=== PATIENT | male | born 1935 | race Caucasian/White ===

== ENCOUNTER → 2018-08-22 | Outpatient (CLI) | payer OTHER ==
[~2018-08-22] VITALS: Ht 170.2 cm; Wt 108.9 kg
[~2018-08-22] MED LIST: ALDACTONE50 MG OR; ALDACTONE50 MG PO; ASPIR 8181 MG PO; ASPIRIN EC325 M1 PO; ASPIRIN325 OR; AVALIDE 300-121 EACH PO; BYSTOLIC10 MG PO; CENTRUM SILVER1 EAC3 PO; CENTRUM SILVER1 EAC4 PO; CENTRUM TABLET1 TAB OR; CETAPHIL MOIST473 ML TP; CO Q-10100 MG PO; COUMADIN 3 MG TA3 M1 PO; COUMADIN 5 MG TA5 M1; COZAAR100 MG OR; COZAAR100 MG PO; CRESTOR10 MG PO; CRESTOR20 MG PO; FISH OIL 1,2001 EAC4 PO; FISHOIL; FUROSEMIDE 40 M40 M1 OR; HYDROCODON-ACE1 EAC5 PO; IBUPROFEN 200200 M1; LASIX 40 MG TAB40 M2 PO; PERCOCET 10-321 EACH; PERCOCET 7.5-31 EACH; TRILIPIX135 MG OR; VITAMIN B COMP1 EACH PO; VITAMIN D31000 UNIT PO; VITAMIN E400 UNIT PO; XARELTO10 MG; XARELTO20 MG PO; ZPAK PO
[2018-08-22 12:29] VITALS: BP 157/66
== END | disposition home or self-care (01) ==
LOC: CATH 10:44
DX: I87.2 Venous insufficiency (chronic) (peripheral) (principal); I87.1 Compression of vein; I10 Essential (primary) hypertension; E78.5 Hyperlipidemia, unspecified; K21.9 Gastro-esophageal reflux disease without esophagitis; Z87.891 Personal history of nicotine dependence; Z95.1 Presence of aortocoronary bypass graft; Z96.653 Presence of artificial knee joint, bilateral; Z79.01 Long term (current) use of anticoagulants; Z98.890 Other specified postprocedural states; Z79.899 Other long term (current) drug therapy; Z88.8 Allergy status to other drugs, medicaments and biological substances

== ENCOUNTER → 2019-08-11 | Outpatient (CLI) | payer OTHER | LOC: SJCVC 10:10 | PROVIDERS: ATTEND Internal Medicine Cardiovascular Disease | DX: I44.0 Atrioventricular block, first degree (principal); I25.810 Atherosclerosis of coronary artery bypass graft(s) without angina pectoris; E78.5 Hyperlipidemia, unspecified; I10 Essential (primary) hypertension; I73.9 Peripheral vascular disease, unspecified; I82.409 Acute embolism and thrombosis of unspecified deep veins of unspecified lower extremity; I87.2 Venous insufficiency (chronic) (peripheral); D68.59 Other primary thrombophilia; I65.23 Occlusion and stenosis of bilateral carotid arteries; I48.0 Paroxysmal atrial fibrillation; R13.19 Other dysphagia; Z85.528 Personal history of other malignant neoplasm of kidney ==

== ENCOUNTER → 2019-09-11 | Outpatient (CLI) | payer OTHER ==
[~2019-09-11] MED LIST changes: +BYSTOLIC 5 MG5 MG PO; +IRBESARTAN-HCT1 EAC1 PO; +MULTIVITAMINS1 EAC7 PO; +PERCOCET 10-321 EAC1 PO
== END ==
LOC: RAD 09:42 → EDSTATUS 10:04 → RAD 10:16
PROVIDERS: ATTEND Otolaryngology Plastic Surgery within the Head & Neck
DX: Z01.812 Encounter for preprocedural laboratory examination (principal); Z11.59 Encounter for screening for other viral diseases

== ENCOUNTER → 2019-09-16 | Outpatient (CLI) | payer OTHER ==
[~2019-09-16] VITALS: Ht 175.3 cm; Wt 108.9 kg
--- NOTE | 2019-09-18 08:05 | P ---
[facility] [place] [address] PROCEDURE REPORT Name: PHYLLIS LEWIS [id number] Admission: 09/16/19 Attend Phys: Sandip Stephen Discharge: Date of : 33 Report #: [id number] THIS REPORT FOR: cc: Jose Jenkins MD,Jose Pal,Sandip Rosenberg MD ~ CC: Sandip Orlando MD DATE OF SERVICE: 09/16/2019 PROCEDURE PERFORMED: Upper endoscopy with esophageal dilation. HISTORY OF PRESENT ILLNESS: The patient is an 83-year-old male with dysphagia, has been ongoing for several years. He apparently has had several upper endoscopies in the past with dilation without much benefit, last one being approximately a year ago. I do not have a copy of these results, also reportedly has had possible video swallow study unsure if he has had a manometry in the past. He denies any odynophagia. No nausea or vomiting. He has tried Prilosec in the past without any improvement. 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 He has been holding this for the last several days. He reports dysphagia, primarily in the upper esophagus both to solids and liquids. DESCRIPTION OF PROCEDURE: The risks and benefits of the procedure were explained to the patient, those risks including but not limited to bleeding, perforation and the risk of sedation. He understood these risks and gave informed consent. Sedation was given using propofol per anesthesia. Next, using a standard Olympus upper endoscope, the scope was placed in the patient's mouth and advanced under direct vision through the esophagus, stomach and into the second portion of the duodenum. The larynx was normal in appearance. The esophagus was normal throughout. The GE junction was normal. There was no evidence of stricture, no evidence of esophagitis. Overall, the gastric mucosa was normal. The pylorus was normal and patent. The duodenal bulb, first and second portion were all normal. The scope was then brought back up into the patient's stomach and a Savary guidewire was inserted through the scope, leaving the guidewire in place as the scope was then withdrawn. Next, a 54-[place] Savary dilator dilation was then performed of the esophagus without difficulty. The wire and dilator removed. The scope was reintroduced into the patient's stomach. There was no evidence of mucosal tear after dilation. The scope was then withdrawn and the procedure terminated. The patient tolerated the procedure well. IMPRESSION: Normal upper endoscopy. [address] [address] PROCEDURE REPORT Name: PHYLLIS LEWIS Room #: REG [facility]ILIA Smith#: [id number] Admission: 09/16/19 Attend Phys: Sandip Stephen Discharge: Date of : 33 Report #: [id number] RECOMMENDATIONS: Observe the patient post-dilation. If there is no benefit, consider esophageal manometry, will need to review the previous studies that have been completed and make further recommendations at that point. Thank you for allowing me to participate in his care. <ELECTRONICALLY SIGNED> By: Sandip Pal MD 09/18/19 [id number] Sandip Pal MD /nt
== END | disposition home or self-care (01) ==
LOC: GI
PROVIDERS: ATTEND Specialist
DX: R13.10 Dysphagia, unspecified (principal); Z87.01 Personal history of pneumonia (recurrent); I48.0 Paroxysmal atrial fibrillation; I25.10 Atherosclerotic heart disease of native coronary artery without angina pectoris; I12.9 Hypertensive chronic kidney disease with stage 1 through stage 4 chronic kidney disease, or unspecified chronic kidney disease; N18.3 Chronic kidney disease, stage 3 (moderate); E78.00 Pure hypercholesterolemia, unspecified; Z79.899 Other long term (current) drug therapy; Z98.890 Other specified postprocedural states
CPT/HCPCS: 62110; 62900

== ENCOUNTER → 2020-03-11 | Outpatient (CLI) | payer OTHER | LOC: SJCVCIMAG 09:03 | PROVIDERS: ATTEND Internal Medicine Cardiovascular Disease | DX: I70.203 Unspecified atherosclerosis of native arteries of extremities, bilateral legs (principal); R94.31 Abnormal electrocardiogram [ECG] [EKG]; I25.810 Atherosclerosis of coronary artery bypass graft(s) without angina pectoris; D68.59 Other primary thrombophilia; E78.00 Pure hypercholesterolemia, unspecified; I65.23 Occlusion and stenosis of bilateral carotid arteries; I48.91 Unspecified atrial fibrillation; I10 Essential (primary) hypertension; I87.2 Venous insufficiency (chronic) (peripheral); I82.409 Acute embolism and thrombosis of unspecified deep veins of unspecified lower extremity; I26.99 Other pulmonary embolism without acute cor pulmonale; Z96.653 Presence of artificial knee joint, bilateral; Z98.890 Other specified postprocedural states; Z95.1 Presence of aortocoronary bypass graft; Z90.49 Acquired absence of other specified parts of digestive tract; Z88.8 Allergy status to other drugs, medicaments and biological substances; Z79.899 Other long term (current) drug therapy; Z86.16 Personal history of COVID-19; Z87.891 Personal history of nicotine dependence ==

== ENCOUNTER → 2020-03-25 | Outpatient (CLI) | payer OTHER | LOC: SJCVCIMAG 08:10 | PROVIDERS: ATTEND Internal Medicine Cardiovascular Disease | DX: I08.3 Combined rheumatic disorders of mitral, aortic and tricuspid valves (principal); I25.89 Other forms of chronic ischemic heart disease; I82.409 Acute embolism and thrombosis of unspecified deep veins of unspecified lower extremity; I82.509 Chronic embolism and thrombosis of unspecified deep veins of unspecified lower extremity; J32.9 Chronic sinusitis, unspecified; I48.91 Unspecified atrial fibrillation; I25.10 Atherosclerotic heart disease of native coronary artery without angina pectoris; I49.3 Ventricular premature depolarization; Z90.5 Acquired absence of kidney; Z79.899 Other long term (current) drug therapy; Z87.891 Personal history of nicotine dependence ==

== ENCOUNTER 2020-07-31 14:09 | Emergency (ER) | payer OTHER ==
[~2020-07-31] VITALS: Ht 175.3 cm; Wt 108.9 kg
[2020-07-31] MEDS ORDERED: ASA81BEC PO (14:25)
[2020-07-31] MEDS ORDERED: VITAMIN C1000 MG PO (14:25)
[2020-07-31 16:57] VITALS: BP 132/66
== END 2020-07-31 16:57 | disposition home or self-care (01) ==
LOC: ER 14:09
DX: R04.0 Epistaxis (principal); I10 Essential (primary) hypertension; Z79.01 Long term (current) use of anticoagulants; Z88.1 Allergy status to other antibiotic agents; Z88.5 Allergy status to narcotic agent; Z79.899 Other long term (current) drug therapy; Z79.82 Long term (current) use of aspirin; Z98.890 Other specified postprocedural states

== ENCOUNTER → 2020-08-04 | Outpatient (CLI) | payer OTHER ==
[~2020-08-04] MED LIST changes: +ASA81BEC PO; +VITAMIN C1000 MG PO
== END ==
LOC: SJCVC 09:56
PROVIDERS: ATTEND Internal Medicine Cardiovascular Disease
DX: I44.0 Atrioventricular block, first degree (principal); I25.10 Atherosclerotic heart disease of native coronary artery without angina pectoris; I73.9 Peripheral vascular disease, unspecified; I48.0 Paroxysmal atrial fibrillation; I82.409 Acute embolism and thrombosis of unspecified deep veins of unspecified lower extremity; E78.00 Pure hypercholesterolemia, unspecified; D68.59 Other primary thrombophilia; N18.30 Chronic kidney disease, stage 3 unspecified; I12.9 Hypertensive chronic kidney disease with stage 1 through stage 4 chronic kidney disease, or unspecified chronic kidney disease; I87.2 Venous insufficiency (chronic) (peripheral); Z86.16 Personal history of COVID-19; E78.5 Hyperlipidemia, unspecified; Z79.899 Other long term (current) drug therapy; Z87.891 Personal history of nicotine dependence; Z88.1 Allergy status to other antibiotic agents; Z88.5 Allergy status to narcotic agent

== ENCOUNTER → 2020-11-09 | Outpatient (CLI) | payer OTHER | LOC: SJCVC 09:08 | PROVIDERS: ATTEND Internal Medicine Cardiovascular Disease | DX: R94.31 Abnormal electrocardiogram [ECG] [EKG] (principal); I48.0 Paroxysmal atrial fibrillation; I25.10 Atherosclerotic heart disease of native coronary artery without angina pectoris; I10 Essential (primary) hypertension; I73.9 Peripheral vascular disease, unspecified; I87.2 Venous insufficiency (chronic) (peripheral); I65.23 Occlusion and stenosis of bilateral carotid arteries; E78.00 Pure hypercholesterolemia, unspecified; E78.5 Hyperlipidemia, unspecified; D68.59 Other primary thrombophilia; Z86.16 Personal history of COVID-19; Z87.891 Personal history of nicotine dependence; Z88.8 Allergy status to other drugs, medicaments and biological substances; Z88.5 Allergy status to narcotic agent; Z79.82 Long term (current) use of aspirin; Z79.899 Other long term (current) drug therapy ==